=== PATIENT | male | born 1960 | race African-American/Black ===

== ENCOUNTER 2019-07-21 08:53 | Day surgery (SDC) | payer MEDICARE ==
[~2019-07-21] VITALS: Ht 177.8 cm; Wt 131.1 kg
--- NOTE | ~2019-07-21 | OP ---
PATIENT NAME: JAIME CABRAL JR MEDICAL RECORD: [id number] :62 LOCATION:[facility] ADMISSION DATE: SURGEON: MARY LOPEZ MD DATE OF OPERATION: 07/21/2019 REFERRED BY: John Rios MD of [place]. 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 OPERATION PERFORMED: Implantation of an Artegraft with a sutureless stented anastomosis to the axillary vein using a 15 cm long x 8 mm diameter Viabahn PTFE covered stent graft after performance of a superior vena cavogram and recannulation of the occluded axillary vein. SURGEON: Mary Lopez MD ANESTHESIA: General endotracheal per [employer]. PREOPERATIVE NOTE: Ms. Cabral is a 59-year-old male patient who I believe has been a patient in [place] being dialyzed there at the [facility] dialysis [facility]; however, his paperwork demographics today indicate that his home address is here in [place]. At any rate, he was referred to me by Dr. Rios. He has a history of a thrombosed left brachiocephalic AV fistula, which was treated by nice transpositioned to the basilic vein and it was kept open with stenting, but finally thrombosed and he has been dialyzing with a right internal jugular tunneled dialysis catheter. He is brought to the operating room at this time to try to reestablish access in the left upper extremity, which is his preference rather than putting a new fistula or graft in the right arm. DESCRIPTION OF PROCEDURE: Under general anesthesia, the patient was prepped and draped in a sterile manner. I examined him with ultrasound and noted the presence of stents in the upper arm and axilla and the patency of the axillary vein in the medial axilla. I made a longitudinal incision and exposed the brachial artery just above the antecubital space and made another longitudinal incision just below the axilla and exposed the previous stented segment of turned down cephalic vein. I dissected this up proximally up to where there was at least some smaller patent vein present. I transected the stented segment and performed a thrombectomy there and then inserted a peel-away introducer and guidewire through the stent up into the axillary vein. I was unable to demonstrate patent axillary vein with this technique. I then dissected free a piece of vein just above the stented segment and encircled the vein there with a Silastic loop and used a micropuncture needle and guidewire to cannulate. I then performed a superior vena cavogram from there. I noted a patent medial axillary vein and subclavian vein, left brachiocephalic vein and superior vena cava. I then did a guidewire exchange and placed an exchange length 0.035 Glidewire with the proximal end in the inferior vena cava. I then performed a sutureless anastomosis of artery graft to the axillary vein over 8 mm diameter x 15 cm long Viabahn stent. I placed the proximal end of the stent in the patent OPERATIVE REPORT [id number] JAIME CABRAL JR medial axillary vein and the stent extended out into the artery graft for a distance of about 5-6 cm and was all then fully expanded with a 10-mm diameter angioplasty balloon. The graft was then flushed and another angiogram performed, which demonstrated very smooth lumen with no impediment to flow through the new graft and to the central venous system. The graft was then flushed with heparin and saline solution, clamped and then passed through a subcutaneous tunnel to the distal incision where the brachial artery had been exposed. The graft was shortened and beveled. The artery was occluded proximally and distally with Silastic tapes and additionally with vascular clamps. The artery was quite atherosclerotic and tended to split and dissect easily. I opened the artery and flushed it proximally and distally with heparinized saline and then performed an end-to-side, end of graft to side of artery anastomosis with running 6-0 Prolene. When completed including clamps and loops were released, excellent flow immediately developed in the new AV graft and there was continuation of pulsatile high resistance flow in the brachial artery distal to the anastomosis, and in the radial and ulnar arteries at the wrist. The wounds were irrigated with Ancef/gentamicin solution and infiltrated with 0.25% Marcaine without epinephrine. The wounds were closed without the use of a drain with interrupted inverted 3-0 Vicryl and running intracuticular 4-0 Stratafix and Dermabond glue. The incisions were dressed with Maxorb Ag, Tegaderm, and Cavilon skin prep and the patient awakened and extubated and taken to the recovery room in stable condition. Blood loss during the operation was about 10 cc, was then unreplaced. Sponges, instruments, and needles were accounted for. No drain was used and no surgical specimen was submitted for histopathology. PLAN: The patient will go home today and follow up with me in my office in about 1 week. He is given a prescription for 10 tablets of [place] 5/325 one p.o. q.4 hours p.r.n. pain. He will continue his usual dialysis schedule and continue all of his home medications and diabetic diet and activities. TRANSINT:[id number] Voice Confirmation ID: [id number] DOCUMENT ID: [id number] cc: [facility] in [place] MARY LOPEZ MD CC: JOHN RIOS MD [id number] DICTATION DATE: 07/21/19 140 MANAGER ARCHITECTURAL: 07/21/192020 [facility] 07/21/19 [facility] [address] [place] [address]
[2019-07-21 09:25] LABS: BASOPHILS 1.1 % (0-2); HEMATOCRIT 37.9 % (42.0-54.0); HEMOGLOBIN 11.8 g/dL (13.5-17.5); IMMATURE GRANULOCYTES 0.2 % (0-5); MCH 27.5 pg (26.0-34.0); MCHC 31.1 g/dL (31.0-37.0); MCV 88.3 fL (80.0-100.0); MEAN PLATELET VOLUME 9.6 fL (7.4-10.4); MONOCYTES 7.5 % (2-11); NEUTROPHILS 66.2 % (40-80); PLATELET COUNT 154 10x3/uL (130-400); RBC 4.29 10x6/uL (4.20-6.10); RDW 14.1 % (11.5-14.5); WBC 6.4 10x3/uL (4.8-10.8)
[2019-07-21 09:38] LABS: ANION GAP 15.5 mmol/L (8-16); CALCIUM 7.5 mg/dL (8.5-10.1); CARBON DIOXIDE 21.8 mmol/L (21.0-32.0); CREATININE - SERUM 13.7 mg/dL (0.6-1.3); POTASSIUM - SERUM 4.3 mmol/L (3.5-5.1)
[2019-07-21 09:40] LABS: INR 1.05 (0.85-1.17); PROTIME 13.7 SECONDS (11.6-15.0)
[2019-07-21] MEDS ORDERED: PHOSLO667 MG PO (10:01)
[2019-07-21] MEDS ORDERED: GLUCOTROL 5 MG T5 MG PO (10:01)
[2019-07-21] MEDS ORDERED: PLAVIX75 MG PO (10:01)
[2019-07-21] MEDS ORDERED: SENSIPAR30 MG PO (10:01)
[2019-07-21] MEDS ORDERED: RENVELA800 MG PO (10:01)
[2019-07-21] MEDS ORDERED: PROTONIX40 MG PO (10:01)
[2019-07-21] MEDS ORDERED: COREG25 MG PO (10:02)
[2019-07-21 10:13] VITALS: Ht 177.8 cm; Wt 131.1 kg
[2019-07-21] MEDS ORDERED: HYDROCODON-ACE1 EAC7 PO (13:37)
--- NOTE | 2019-07-21 18:22 | NUR ---
1615-REMOVED IV FROM [facility].
== END 2019-07-21 16:26 | disposition home or self-care (01) ==
LOC: D.OPS 08:53
PROVIDERS: ATTEND Surgery
DX: I12.0 Hypertensive chronic kidney disease with stage 5 chronic kidney disease or end stage renal disease (principal); E11.22 Type 2 diabetes mellitus with diabetic chronic kidney disease; N18.6 End stage renal disease; Z99.2 Dependence on renal dialysis; T82.868A Thrombosis due to vascular prosthetic devices, implants and grafts, initial encounter; I25.10 Atherosclerotic heart disease of native coronary artery without angina pectoris; Z79.84 Long term (current) use of oral hypoglycemic drugs; E03.9 Hypothyroidism, unspecified